=== PATIENT | male | born 1935 | race Hispanic/Latino ===

== ENCOUNTER 2019-06-27 14:05 | Emergency (ER) | payer OTHER ==
--- OUTSIDE RECORDS SUMMARY | 2019-06-27 14:07 | XMS REPORT ---
:1935 Author Organization [facility] Address [address] [place] [address] Care Team Providers Name Role Phone Unavailable Unavailable Unavailable Payers Payer Name Policy Type Policy Number Effective Date Expiration Date Problems This patient has no known problems. Allergies, Adverse Reactions, Alerts Allergy Name Allergy Status Severity Reaction(s) Onset Inactive Treating Comments Type Date Date Clinician Iodinated DA Active AL 2017-07 Contrast- Oral and IV Dye 00:00: 00 codeine DA Active AL 2017-07 00:00: 00 hydrocodone DA Active AL 2017-07 00:00: 00 propoxyphene DA Active AL 2017-07 00:00: 00 aspirin DA Active AL 2017-07 00:00: 00 Iodinated DA Active AL Contrast Media 02-03 - IV Dye 00:00: 00 codeine DA Active AL 02-03 00:00: 00 hydrocodone DA Active AL 02-03 00:00: 00 propoxyphene DA Active AL 02-03 00:00: 00 aspirin DA Active AL 02-03 00:00: 00 Medications This patient has no known medications.
--- NOTE | 2019-06-27 15:15 | ER ---
Nurse's Notes [facility] Name: Tarik Alvarado Sr Age: 83 yrs Sex: Male : 1935 Arrival Date: 06/27/2019 Time: 14:07 Bed 17 Private MD: Diagnosis: Atypical facial pain Presentation: 06/27 14:17 Presenting complaint: Worsening right sided face pain x 2 weeks. Transition of care: hb patient was not received from another setting of care. Onset of symptoms is unknown. Risk Assessment: Do you want to hurt yourself or someone else? Patient reports no desire to harm self or others. Care prior to arrival: None. 14:17 Method Of Arrival: Ambulatory hb 14:17 Acuity: DEREK 3 hb 14:30 Initial Sepsis Screen: Does the patient meet any 2 criteria? No. Patient's initial ca1 sepsis screen is negative. Does the patient have a suspected source of infection? No. Patient's initial sepsis screen is negative. Historical: - Allergies: 14:18 Aspirin; hb 14:18 Iodine; hb - Immunization history:: Adult Immunizations up to date. - Social history:: Smoking status: Patient/guardian denies using tobacco, Patient/guardian denies using alcohol, street drugs, The patient lives with family. - Ebola Screening: : No symptoms or risks identified at this time. - Family history:: not pertinent. Screenin:30 Abuse screen: Denies threats or abuse. Denies injuries from another. Nutritional ca1 screening: No deficits noted. Tuberculosis screening: No symptoms or risk factors identified. Fall Risk None identified. Assessment: 14:30 General: Appears in no apparent distress. comfortable, Behavior is calm, cooperative, ca1 appropriate for age. Pain: Complains of pain in right jaw Pain radiates to right ear Pain currently is 8 out of 10 on a pain scale. Quality of pain is described as shooting, Pain began a week ago Is intermittent. Neuro: Level of Consciousness is awake, alert, obeys commands, Oriented to person, place, time, situation, Appropriate for age [employer] are equal bilaterally Moves all extremities. Gait is steady, Speech is normal, Facial symmetry appears normal, Pupils are PERRLA, Intact. Cardiovascular: Heart tones S1 S2 present Capillary refill < 3 seconds Patient's skin is warm and dry. Pulses are all present. Respiratory: Airway is patent Respiratory effort is even, unlabored, Respiratory pattern is regular, symmetrical, Breath sounds are clear bilaterally. GI: Abdomen is flat, non-distended, Bowel sounds present X 4 quads. Abd is soft and non tender X 4 quads. : No deficits noted. No signs and/or symptoms were reported regarding the genitourinary system. EENT: No deficits noted. No signs and/or symptoms were reported regarding the EENT system. Derm: Skin is intact, is healthy with good turgor, Skin is pink, warm \T\ dry. Musculoskeletal: Circulation, motion, and sensation intact. Capillary refill < 3 seconds, Range of motion: intact in all extremities. 14:30 General: Appears in no apparent distress. comfortable, Behavior is calm, appropriate ca1 for age. Pain:. 15:30 Reassessment: Patient appears in no apparent distress at this time. Patient is alert, ca1 oriented x 3, equal unlabored respirations, skin warm/dry/pink. Vital Signs: 14:17 BP 167 / 70; Pulse 71; Resp 16; Temp 98.3; Pulse Ox 100% on R/A; Weight 65.77 kg; hb Height 5 ft. 9 in. (175.26 cm); Pain 8/10; 15:30 BP 152 / 86; Pulse 86; Resp 18 S; Pulse Ox 100% on R/A; ca1 14:17 Body Mass Index 21.41 (65.77 kg, 175.26 cm) hb ED Course: 14:07 Patient arrived in ED. rg4 14:17 Triage completed. hb 14:17 Arm band placed on. hb 14:25 Makayla Rahman, NILAM is Primary Nurse. ca1 14:30 Augustine Singer MD is Attending Physician. ma2 14:30 Patient has correct armband on for positive identification. Bed in low position. Call ca1 light in reach. Side rails up X 1. Pulse ox on. NIBP on. Warm blanket given. 15:43 No provider procedures requiring assistance completed. Patient did not have IV access ca1 during this emergency room visit. Administered Medications: No medications were administered Outcome: 15:14 Discharge ordered by . ma2 15:44 Discharged to home ambulatory, with significant other. ca1 15:44 Condition: stable 15:44 Discharge instructions given to patient, Instructed on discharge instructions, follow up and referral plans. no drinking with medication, no driving heavy equipment, medication usage, Demonstrated understanding of instructions, follow-up care, medications, Prescriptions given X 1. 15:44 Patient left the ED. ca1 Signatures: María Damon, RN Brenda Raygoza rg4 Augustine Singer MD MD ma2 Makayla Rahman RN RN ca1
--- NOTE | 2019-06-27 15:16 | EDPHYS ---
Physician Documentation [facility] Name: Tarik Alvarado Sr Age: 83 yrs Sex: Male : 1935 Arrival Date: 06/27/2019 Time: 14:07 Bed 17 Private MD: ED Physician Augustine Singer HPI: 06/27 15:12 This 83 yrs old Male presents to ER via Ambulatory with complaints of Jaw Pain.ma2 15:12 The complaints affect the right ear and right jaw. Onset: The symptoms/episode ma2 began/occurred gradually, 1 week(s) ago. Severity of symptoms: At their worst the symptoms were very mild, in the emergency department the symptoms are unchanged. The patient has not experienced similar symptoms in the past. Historical: - Allergies: 14:18 Aspirin; hb 14:18 Iodine; hb - Immunization history:: Adult Immunizations up to date. - Social history:: Smoking status: Patient/guardian denies using tobacco, Patient/guardian denies using alcohol, street drugs, The patient lives with family. - Ebola Screening: : No symptoms or risks identified at this time. - Family history:: not pertinent. ROS: 15:12 Constitutional: Negative for fever, chills, and weight loss. ma2 15:12 All other systems are negative. Exam: 15:12 Constitutional: This is a well developed, well nourished patient who is awake, alert, ma2 and in no acute distress. Head/Face: mild ttp over tmj and massiter muscle, no ttp over temporal artery, Normocephalic, atraumatic. Eyes: Pupils equal round and reactive to light, extra-ocular motions intact. Lids and lashes normal. Conjunctiva and sclera are non-icteric and not injected. Cornea within normal limits. Periorbital areas with no swelling, redness, or edema. ENT: Nares patent. No nasal discharge, no septal abnormalities noted. Tympanic membranes are normal and external auditory canals are clear. Oropharynx with no redness, swelling, or masses, exudates, or evidence of obstruction, uvula midline. Mucous membranes moist. Chest/axilla: Normal chest wall appearance and motion. Nontender with no deformity. No lesions are appreciated. Cardiovascular: Regular rate and rhythm with a normal S1 and S2. No gallops, murmurs, or rubs. Normal PMI, no JVD. No pulse deficits. Respiratory: Lungs have equal breath sounds bilaterally, clear to auscultation and percussion. No rales, rhonchi or wheezes noted. No increased work of breathing, no retractions or nasal flaring. Abdomen/GI: Soft, non-tender, with normal bowel sounds. No distension or tympany. No guarding or rebound. No evidence of tenderness throughout. Vital Signs: 14:17 BP 167 / 70; Pulse 71; Resp 16; Temp 98.3; Pulse Ox 100% on R/A; Weight 65.77 kg; hb Height 5 ft. 9 in. (175.26 cm); Pain 8/10; 15:30 BP 152 / 86; Pulse 86; Resp 18 S; Pulse Ox 100% on R/A; ca1 14:17 Body Mass Index 21.41 (65.77 kg, 175.26 cm) hb MDM: 14:31 Patient medically screened. ma2 15:12 Differential diagnosis: trigeminal neuralgia, other dd. includes TMJ arthritis they ma2 will see pcp to get mri. Differential diagnosis:. Data reviewed: vital signs, nurses notes. Counseling: I had a detailed discussion with the patient and/or guardian regarding: the historical points, exam findings, and any diagnostic results supporting the discharge/admit diagnosis, the presence of at least one elevated blood pressure reading (>120/80) during this emergency department visit. Administered Medications: No medications were administered Disposition: 06/27/19 15:14 Discharged to Home. Impression: Atypical facial pain. - Condition is Stable. - Discharge Instructions: Temporomandibular Joint Syndrome, Trigeminal Neuralgia. - Prescriptions for Neurontin 300 mg Oral Capsule - take 0.5 capsule by ORAL route every 8 hours; 30 capsule. - Medication Reconciliation Form, Thank You Letter, Antibiotic Education, Prescription Opioid Use form. - Follow up: Private Physician; When: Tomorrow; Reason: Continuance of care. Signatures: María Damon RN RN Augustine Singer MD MD ma2 Makayla Rahman RN RN ca1 Corrections: (The following items were deleted from the chart) 15:44 15:14 06/27/2019 15:14 Discharged to Home. Impression: Atypical facial pain. Condition ca1 is Stable. Forms are Medication Reconciliation Form, Thank You Letter, Antibiotic Education, Prescription Opioid Use. Follow up: Private Physician; When: Tomorrow; Reason: Continuance of care. ma2
[2019-06-27 17:01] VITALS: TEMP 98.3; O2SAT 100
[2019-06-27 17:03] VITALS: BP 152/86
== END 2019-06-27 15:44 | disposition home or self-care (01) ==
LOC: ER 14:05
DX: G50.1 Atypical facial pain (principal); Z88.6 Allergy status to analgesic agent; Z91.048 Other nonmedicinal substance allergy status
CPT/HCPCS: 99283